=== PATIENT | female | born 1980 | race Caucasian/White ===

== ENCOUNTER 2024-09-16 09:55 | Emergency (ER) | payer OTHER, SELFPAY ==
[2024-09-16 10:11] VITALS: BP 119/90
[2024-09-16 11:07] VITALS: BP 131/81
--- NOTE | 2024-09-16 11:27 | ED.GENMED ---
History of Present Illness
General
Chief Complaint: Fainting Sensation
Source: patient
Exam Limitations: none
Time Seen by Provider: 09/16/24 11:16
History of Present Illness
History of Present Illness:
44-year-old female presents with intermittent symptoms of shortness of breath and lightheadedness and feeling as she going to pass out over the past week but worse the last 2 days. No chest pain. She takes control. No leg swelling or calf
pain. No recent surgery. No fever or chills. She is wondering if she is anxious. No abdominal pain. No other complaints at
Past History
Past History
ED Past Medical History: None
ED Past Surgical History: None
Social History
Tobacco: Non-smoker
Alcohol: None
Drug: None
Living: with family
Phy Exam
Physical Exam
Physical Exam:
General: Well-appearing female no acute respiratory distress
HEENT: Normocephalic atraumatic heart: Regular rate and rhythm
Lungs: Clear no wheeze
Abdomen is soft nontender
Extremities: No cyanosis or edemaNo calf tenderness
Vascular: 2+ DP pulse bilateral feet
Course
Orders/Labs/Results
Orders:
Orders
09/16/24 10:15
Electrocardiogram (*1) Urgent
Reason for Study: Syncope
EKG- Treatment ONCE
Test Result ONCE
09/16/24 12:52
Complete Blood Count/With Diff Urgent
Comprehensive Metabolic Panel Urgent
D-Dimer Urgent
HCG, Serum Qualitative Screen Urgent
Troponin I Urgent
09/16/24 13:25
CR Chest - 2 Views Urgent
Comment:
Reason For Exam: sob
Abnormal Lab Results
09/16/24
12:52
RBC 5.43 H 10^6/uL
(4.20-5.40)
MCV 78.8 L fL
(81.0-99.0)
MCH 26.9 L pg
(27.0-31.0)
09/16/24 12:52
09/16/24 12:52
Vital Signs
Initial and Last Documented VS:
Initial Vital Signs
Temp Pulse Resp BP Pulse Ox
97.9 F 85 20 119/90 100
09/16/24 10:11 09/16/24 10:11 09/16/24 10:11 09/16/24 10:11 09/16/24 10:11
Last Documented Vital Signs
Temp Pulse Resp BP Pulse Ox
97.9 F 93 15 119/66 100
09/16/24 10:11 09/16/24 13:30 09/16/24 13:30 09/16/24 13:18 09/16/24 13:18
MDM/Problems Addressed
Differential Diagnosis Includes:
Shortness of breath and lightheadedness. Consider anemia versus asthma versus pneumonia versus PE versus anxiety
Check labs. EKG shows sinus rhythm
With a rate of 94 no ischemic changes.
Imaging pending D-dimer result
*Pulse Oximetry
SaO2: 100
Oxygen Mode of Delivery: Room air
Patient hypoxic: no
*Critical Care Note
Total Time (30-74mins, 75-104mins- exclusive of procedures): Not Applicable
Update Note
Update Note:
D-dimer and troponin undetectable. Unlikely to be PE. Chest x-ray clear. Do not suspect ACS. Lungs are clear do not suspect asthma. Otherwise patient is stable with normal vital signs. No indication for admission. Stable for discharge with
follow-up with family doctor
ED Attending Note
-
Portions of this chart may have been created with voice recognition software.� Occasional wrong word or��sound alike� substitutions may have occurred due to the inherent limitations of voice recognition software.
Discharge Plan
Departure
Patient Disposition: Home (Routine Discharge)
Date of Disposition: 09/16/24
Time of Disposition: 13:48
Patient with high blood pressure during this ER visit?: No
Discharge Problem:
Shortness of breath
Instructions: Shortness of breath
Prescriptions:
No Action
ciprofloxacin HCl 500 MG tablet
500 mg PO BID Qty: 14 0RF
oxycodone-acetaminophen 5 MG/325 MG tablet
1 tab PO .Q4-6HPRN PRN (Reason: pain) Qty: 10 0RF
ondansetron 4 MG tablet,disintegrating
4 mg PO TID PRN (Reason: nausea) Qty: 9 0RF
Referrals:
NONE,* [Family Provider, Internal Medicine]
Activity Restrictions/Additional Instructions:
Return here for worsening symptoms otherwise follow-up with your doctor
Interventions
Interventions:
*Risk Screen - Suicide Last Done: 09/16/24 10:11
*General Assessment Last Done: 09/16/24 10:11
*Neglect/Abuse Screening Last Done: 09/16/24 11:18
*ED- Fall Risk Assessment Last Done: 09/16/24 11:18
*ED COVID-19 Vaccine History Last Done: 09/16/24 11:18
*Nursing Disposition Last Done: 09/16/24 14:05
ED- Cardiac Assessment Last Done: 09/16/24 11:18
ED- Neurological Assessment Last Done: 09/16/24 11:18
Discharge Date and Time
Discharge Date/Time: 09/16/24 14:06
Print Language: [email or web address]
[2024-09-16 13:07] LABS: Hematocrit 42.8 % (37.0-47.0); Hemoglobin 14.6 g/dL (12.0-16.0); Mean Corp Hgb Conc. 34.1 g/dL (33.0-37.0); Mean Corpuscular Volume 78.8 fL (81.0-99.0); Nucleated Red Blood Cells % 0 %; Platelet Count 336 10^3/uL (130-400); Red Cell Dist. Width 13.2 % (11.5-14.5)
[2024-09-16 13:18] VITALS: BP 119/66
[2024-09-16 13:22] LABS: HCG, Serum Qualitative Screen Negative
[2024-09-16 13:23] LABS: D-Dimer < 0.27 ug/mlFEU (0.00-0.50)
[2024-09-16 13:34] LABS: Troponin I < 0.012 ng/ml
[2024-09-16 13:40] LABS: ALT (SGPT) 20 U/L (0-35); AST (SGOT) 29 U/L (14-36); Albumin 4.8 g/dl (3.5-5.0); Alkaline Phosphatase 67 U/L (38-126); Blood Urea Nitrogen 13 mg/dl (7-17); Calcium 9.8 mg/dl (8.4-10.2); Carbon Dioxide 23 mmol/L (22-30); Chloride 107 mmol/L (98-107); Glucose 96 mg/dl (70-99); Potassium 3.7 mmol/L (3.5-5.1); Sodium 138 mmol/L (135-145); Total Protein 7.6 g/dl (6.3-8.2); eGFR > 60.00
== END 2024-09-16 14:06 | disposition home or self-care (01) ==
LOC: EMR 09:55
PROVIDERS: Physician Assistant; EMERGENCY PHYSICIAN Emergency Medicine
DX: R06.02 Shortness of breath (principal); R42 Dizziness and giddiness; Z79.3 Long term (current) use of hormonal contraceptives
CPT/HCPCS: 99285; 71046; 80053; 84484; 84703; 85025; 85379; 93005